=== PATIENT | male | born 1995 | race Caucasian/White ===

== ENCOUNTER 2018-11-04 09:33 | Emergency (ER) | payer OTHER ==
[2018-11-04] MEDS ORDERED: LIDOCAINE 1% 100 MG in NS 100 ML IV ONE (10:03)
[2018-11-04] MEDS ORDERED: NS 1,000 ML IV ONE (10:03)
--- NOTE | 2018-11-04 10:08 | EDPHY ---
H & P Stated Complaint: l flank pain Time Seen by Provider: 11/04/18 10:01 HPI/ROS: CHIEF COMPLAINT: Left flank pain since this morning HISTORY OF PRESENT ILLNESS: 23-year-old male generally healthy, no history of nephrolithiasis, via private vehicle complaining of acute sharp stabbing left flank pain seems to come in waves.. Radiates to his abdomen. No testicle pain. Nausea or vomiting. No trauma. No rash no lesions. No chest pain. No fall. No history of similar. REVIEW OF SYSTEMS: 10 systems reviewed and negative with the exception of the elements mentioned in the history of present illness PAST MEDICAL & SURGICAL HISTORY: No history of nephrolithiasis SOCIAL HISTORY: No alcohol use. PHYSICAL EXAM (Prior to examination, patient consented to physical exam, hands were washed and my usual and customary physical exam procedures followed) 1) GENERAL: Well-developed, well-nourished, alert and oriented. Appears uncomfortable 2) HEAD: Normocephalic, atraumatic 3) HEENT: Pupils equal, round, reactive to light bilaterally. Sclera anicteric. Nasopharynx, oropharynx, clear, no lesions. Moist Mucous membranes. Ears bilaterally with normal tympanic membranes. 4) NECK: Full range of motion, no meningeal signs. 5) LUNGS: Clear auscultation bilaterally, no wheezes, no rhonchi, no retractions. 6) HEART: Regular rate and rhythm, no murmur, no heave, no gallop. 7) ABDOMEN: No guarding, no rebound, no focal tenderness, negative McBurney's, negative Jarrell's, negative Rovsing's, negative peritoneal sign, 8) MUSCULOSKELETAL: Moving all extremities, no focal areas of tenderness, no obvious trauma. No peripheral edema or discoloration. 9) BACK: No CVA tenderness, no midline vertebral tenderness, no fluctuance, no step-off, no obvious trauma, no visual or palpable abnormality. 10) SKIN: No rash, no petechiae. 11) : Normal male external genitalia bilateral testicles nontender bilateral cremasteric reflex present and brisk, no high-riding testicle DIFFERENTIAL DIAGNOSIS: In no particular order including but not limited to nephrolithiasis, pyelonephritis, diverticulitis - Personal History Current Tetanus Diphtheria and Acellular Pertussis (TDAP): Unsure - Medical/Surgical History Hx Asthma: No Hx Chronic Respiratory Disease: No Hx Diabetes: No Hx Cardiac Disease: No Hx Renal Disease: No Hx Cirrhosis: No Hx Alcoholism: No Hx HIV/AIDS: No Hx Splenectomy or Spleen Trauma: No Other PMH: opiate abuse - Social History Smoking Status: Current every day smoker Constitutional: Initial Vital Signs Temperature (C) 36.4 C 11/04/18 09:48 Heart Rate 66 11/04/18 09:48 Respiratory Rate 18 11/04/18 09:48 Blood Pressure 139/92 H 11/04/18 09:48 O2 Sat (%) 100 11/04/18 09:48 O2 Delivery Mode Room Air Allergies/Adverse Reactions: Sulfa (Sulfonamide Antibiotics) Allergy (Verified 11/04/18 09:47) Home Medications: Medication Instructions Recorded Cephalexin [Keflex] 500 mg PO TID 7 Days cap 11/04/18 Tamsulosin HCl [Flomax] 0.4 mg PO DAILY #7 cap 11/04/18 Vivitrol 11/04/18 Medical Decision Making - Diagnostics Imaging Results: Imaging Impressions Abdomen/Pelvis CT 11/04/18 10:05 Impression: 5.2-mm calculus in the distal left ureter at the ureterovesical junction with moderate hydroureter and hydronephrosis. Nonobstructive bilateral nephrolithiasis. Results called and discussed with López Heller PA-C on November 04, 2018 at 1055 hours. Attention: This CT examination is specifically designed to evaluate patients who are clinically suspected of having acute obstructive uropathy. This examination does not use radiographic contrast, and as such, provides only a limited evaluation of the abdomen, pelvis and retroperitoneum. If there is further clinical suspicion for pathological conditions other than obstructive uropathy, a complete CT evaluation of the abdomen and pelvis utilizing intravenous, oral, and rectal contrast should be considered. ED Course/Re-evaluation: 10:55 a.m.: Re-evaluation after IV lidocaine, Toradol. Total relief of pain at this time. Discussed with him his imaging showing 5 mm stone at the left UVJ. I have offered further analgesia which he declines noting a substance abuse history. Plan will be discharged with Flomax, Keflex as he is noted to have small amount of pyuria bacteriuria. Urine has been cultured. Recommend follow up with Urology. Given urine strainer. Given my usual and customary urologic precautions and instructions. Care of patient under supervision of secondary supervising physician Dr Shore with whom I discussed case. - Data Points Laboratory Results: Laboratory Results 11/04/18 10:17 11/04/18 10:17 11/04/18 11/04/18 11/04/18 10:17 10:17 09:50 WBC 11.34 10^3/uL H 10^3/uL (3.80-9.50) RBC 5.20 10^6/uL 10^6/uL (4.40-6.38) Hgb 15.8 g/dL g/dL (13.7-17.5) Hct 46.0 % % (40.0-51.0) MCV 88.5 fL fL (81.5-99.8) MCH 30.4 pg pg (27.9-34.1) MCHC 34.3 g/dL g/dL (32.4-36.7) RDW 11.4 % L % (11.5-15.2) Plt Count 230 10^3/uL 10^3/uL (150-400) MPV 9.5 fL fL (8.7-11.7) Neut % (Auto) 76.0 % H % (39.3-74.2) Lymph % (Auto) 12.5 % L % (15.0-45.0) [place] % (Auto) 8.5 % % (4.5-13.0) Eos % (Auto) 1.7 % % (0.6-7.6) Baso % (Auto) 0.9 % % (0.3-1.7) Nucleat RBC Rel Count 0.0 % % (0.0-0.2) Absolute Neuts (auto) 8.62 10^3/uL H 10^3/uL (1.70-6.50) Absolute Lymphs (auto) 1.42 10^3/uL 10^3/uL (1.00-3.00) Absolute Monos (auto) 0.96 10^3/uL H 10^3/uL (0.30-0.80) Absolute Eos (auto) 0.19 10^3/uL 10^3/uL (0.03-0.40) Absolute Basos (auto) 0.10 10^3/uL 10^3/uL (0.02-0.10) Absolute Nucleated RBC 0.00 10^3/uL 10^3/uL (0-0.01) Immature Gran % 0.4 % % (0.0-1.1) Immature Gran # 0.05 10^3/uL 10^3/uL (0.00-0.10) Sodium 137 mEq/L mEq/L (135-145) Potassium 3.8 mEq/L mEq/L (3.5-5.2) Chloride 108 mEq/L mEq/L (97-110) Carbon Dioxide 20 mEq/l L mEq/l (22-31) Anion Gap 9 mEq/L mEq/L (6-14) BUN 18 mg/dL mg/dL (7-23) Creatinine 1.1 mg/dL mg/dL (0.7-1.3) Estimated GFR > 60 Glucose 109 mg/dL H mg/dL (70-100) Calcium 9.7 mg/dL mg/dL (8.5-10.4) Urine Color YELLOW Urine Appearance HAZY Urine pH 6.0 (5.0-7.5) Ur Specific [place] 1.025 (1.002-1.030) Urine Protein 1+ H (NEGATIVE) Urine Ketones NEGATIVE (NEGATIVE) Urine Blood 3+ H (NEGATIVE) Urine Nitrate NEGATIVE (NEGATIVE) Urine Bilirubin NEGATIVE (NEGATIVE) Urine Urobilinogen 2.0 EU H EU (0.2-1.0) Ur Leukocyte Esterase NEGATIVE (NEGATIVE) Urine RBC 50-182 /hpf H /hpf (0-3) Urine WBC 15-25 /hpf H /hpf (0-3) Ur Epithelial Cells TRACE /lpf /lpf (NONE-1+) Urine Bacteria TRACE /hpf H /hpf (NONE SEEN) Urine Mucus 4+ /lpf H /lpf (NONE-1+) Urine Glucose NEGATIVE (NEGATIVE) Medications Given: Discontinued Medications Cephalexin HCl (Keflex) 500 mg PO EDNOW ONE PRN Reason: Protocol Stop: 11/04/18 10:49 Last Admin: 11/04/18 11:16 Dose: 500 mg Lidocaine HCl 100 mg/ Sodium (Chloride) 110 mls @ 600 mls/hr IV EDNOW ONE Stop: 11/04/18 10:13 Last Admin: 11/04/18 10:27 Dose: 110 mls Sodium Chloride (Ns) 1,000 mls @ 3,000 mls/hr IV EDNOW ONE Stop: 11/04/18 10:22 Last Admin: 11/04/18 10:33 Dose: 1,000 mls Tamsulosin HCl (Flomax) 0.4 mg PO EDNOW ONE Stop: 11/04/18 10:37 Last Admin: 11/04/18 11:15 Dose: 0.4 mg Departure - Departure Disposition: Home, Routine, Self-Care Clinical Impression: Nephrolithiasis Condition: Good Instructions: Kidney Stones (ED) Additional Instructions: Return to the ER if you develop fever, chills, nausea, vomiting, or any other symptoms that concern you. Referrals: Iván Gardner MD [Medical Doctor] - 2-3 days without fail Prescriptions: Cephalexin [Keflex] 500 mg PO TID 7 Days cap Tamsulosin HCl [Flomax] 0.4 mg PO DAILY #7 cap
[2018-11-04 10:26] LABS: PLATELET COUNT 230 10^3/uL (150-400)
[2018-11-04] MEDS ORDERED: TAMSULOSIN HCL 0.4 MG CAP PO ONE (10:36)
[2018-11-04] MEDS ORDERED: CEPHALEXIN 500 MG CAP PO ONE (10:48)
[2018-11-04 11:39] VITALS: BP 133/78
== END 2018-11-04 11:55 | disposition home or self-care (01) ==
DX: N13.2 Hydronephrosis with renal and ureteral calculous obstruction (principal); N13.4 Hydroureter; F17.200 Nicotine dependence, unspecified, uncomplicated; Z88.2 Allergy status to sulfonamides